=== PATIENT | female | born 1985 | race Caucasian/White ===

== ENCOUNTER 2025-07-13 13:10 | Outpatient (CLI) | payer OTHER | END 2025-07-13 13:11 | disposition home or self-care (01) | LOC: CSHULT 13:10 | PROVIDERS: ATTEND Internal Medicine | DX: R10.2 Pelvic and perineal pain (principal); R93.41 Abnormal radiologic findings on diagnostic imaging of renal pelvis, ureter, or bladder | CPT/HCPCS: 76856 ==

== ENCOUNTER 2025-07-21 08:49 | Outpatient (CLI) | payer OTHER | END 2025-07-21 08:50 | disposition home or self-care (01) | LOC: CSHULT 08:49 | PROVIDERS: ATTEND Internal Medicine | DX: R74.01 Elevation of levels of liver transaminase levels (principal) | CPT/HCPCS: 76705 ==